=== PATIENT | male | born 1975 | race African-American/Black ===

== ENCOUNTER 2017-09-27 23:24 | Inpatient (IN) | payer MEDICARE, MEDICAID ==
[2017-09-28] MEDS ORDERED: Lactated Ringer 1,000 ML IV ONE (01:13)
[2017-09-28] MEDS ORDERED: Morphine Sulfate 2 mg/mL 1mL Syr IVP STA (01:14)
[2017-09-28 01:19] LABS: % BASOPHILS 3.2 % (0.0-2.0); % LYMPHOCYTES 47.5 % (20.0-50.0); % MONOCYTES 8.3 % (2.0-10.0); BASOPHILE ABSOLUTE 0.2 Th/cumm (0-0.2); EOSINOPHILE ABSOLUTE 0.2 Th/cmm (0.1-0.4); HEMATOCRIT 46.3 % (41.0-60); HEMOGLOBIN 15.3 gm/dL (12-16); LYMPHOCYTE ABSOLUTE 3.8 Th/cmm (1.5-3.0); MEAN CORPUSCULAR HEMOGLOBIN 29.3 pg (26.0-30.0); MEAN CORPUSCULAR HGB CONC 32.9 pg (28.0-36.0); MEAN PLATELET VOLUME 8.1 fl; MONOCYTE ABSOLUTE 0.6 Th/cmm (0.3-1.0); PLATELET COUNT 280 Th/cmm (150-400); RED BLOOD COUNT 5.21 Mil/cmm (4.30-5.70); RED CELL DISTRIBUTION WIDTH 14.7 % (11.5-20.0); WHITE BLOOD COUNT 7.8 Th/cmm (4.8-10.8)
[2017-09-28] MEDS ORDERED: Morphine Sulfate 2 mg/mL 1mL Syr ONE (01:24)
[2017-09-28 01:31] LABS: ALB/GLOB RATIO 1.2 (1.0-1.8); ALBUMIN 4.1 gm/dL (4.2-5.5); ALKALINE PHOSPHATASE 59 U/L (34-104); ANION GAP 11.4 (7.0-16.0); BILIRUBIN,TOTAL 0.4 mg/dL (0.3-1.0); BUN - UREA NITROGEN 16 mg/dL (7-25); CALCIUM SERUM 9.9 mg/dL (8.6-10.3); CARBON DIOXIDE 25.3 mEq/L (21.0-31.0); CHLORIDE 103 mEq/L (98-107); CREATININE - SERUM 0.9 mg/dL (0.7-1.3); GFR AFRICAN-AMERICAN > 60.0 ml/min (>90); GFR NON AFRICAN-AMERICAN > 60.0 ml/min; GLUCOSE 76 mg/dL (70-105); MAGNESIUM 1.9 mg/dL (1.9-2.7); PHOSPHOROUS 3.1 mg/dL (2.5-5.0); POTASSIUM SERUM 3.7 mEq/L (3.5-5.1); SGOT 11 U/L (13-39); SGPT/ALT 7 U/L (7-52); SODIUM SERUM 136 mEq/L (136-145); TOTAL PROTEIN,SERUM 7.6 gm/dL (6.0-8.3)
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
[2017-09-28] MEDS ORDERED: Morphine Sulfate 2 mg/mL 1mL Syr IVP PRN (04:11)
[2017-09-28 06:38] VITALS: BP 118/81
[2017-09-28] MEDS ORDERED: VTE Chemical Prophylaxis Screen/Admission MC PRN (08:04)
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
--- NOTE | 2017-09-28 09:04 | Diagnostic Imaging Report ---
Portable chest x-ray History: Cough Allowing for portable technique the heart size is normal. No focal pulmonary parenchymal processes. No hilar or mediastinal abnormalities. Impression: No acute abnormalities.
[2017-09-28 09:06] LABS: AMYLASE SERUM 96 U/L (29-103); LIPASE 21 U/L (11-82)
[2017-09-28] MEDS ORDERED: Magnesium Hydroxide (MOM) 30 mL UDC PO PRN (10:51)
[2017-09-28] MEDS: Lactated Ringer 1,000 ML IV SCH ×2 (11:18→21:06)
[2017-09-28] MEDS: Morphine Sulfate 2 mg/mL 1mL Syr IVP PRN ×2 (11:23→16:19)
[2017-09-28] MEDS ORDERED: Non-Formulary Item 1 EA (Amino Acids/Protein Hydrolys [Pro-Stat Sugar Free Liquid] 30 ML) PO SCH (17:00)
[2017-09-28 17:02] LABS: URINE BILIRUBIN NEGATIVE (NEGATIVE); URINE BLOOD NEGATIVE (NEGATIVE); URINE GLUCOSE (UA) NEGATIVE (NEGATIVE); URINE KETONE NEGATIVE (NEGATIVE); URINE LEUKOCYTE ESTERASE NEGATIVE (NEGATIVE); URINE NITRATE NEGATIVE (NEGATIVE); URINE PROTEIN NEGATIVE (NEGATIVE); URINE SOURCE CATH; URINE UROBILINOGEN 0.2 E.U./dL (0.2 - 1.0)
[2017-09-28 17:03] LABS: URINE CLARITY CLEAR (CLEAR); URINE COLOR YELLOW; URINE MICROSCOPIC INDICATED? YES
[2017-09-28 17:05] LABS: URINE BACTERIA 1+ /hpf (NONE SEEN); URINE EPITHELIAL CELLS MODERATE /lpf (FEW); URINE RBC 0-2 /hpf (0-5)
[2017-09-28 17:10] LABS: AMPHETAMINE URINE NEGATIVE (NEGATIVE); BARBITURATES URINE NEGATIVE (NEGATIVE); BENZODIAZEPINES QUAL URINE NEGATIVE (NEGATIVE); CANNABINOID THC NEGATIVE (NEGATIVE); COCAINE METABOLITE QUAL URINE NEGATIVE (NEGATIVE); METHADONE URINE NEGATIVE (NEGATIVE); METHAMPHETAMINES QUAL URINE NEGATIVE (NEGATIVE); OPIATES (MORPHINE) QUAL. URINE POSITIVE (NEGATIVE); PHENCYCLIDINE (PCP) URINE NEGATIVE (NEGATIVE); TRICYCLICS (TCA) QUAL. URINE NEGATIVE (NEGATIVE)
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
[2017-09-29] MEDS: Lactated Ringer 1,000 ML IV SCH ×3 (05:37→23:29)
[2017-09-29] MEDS: Morphine Sulfate 2 mg/mL 1mL Syr IVP PRN ×2 (10:00→16:47)
[2017-09-29] MEDS: Aspirin 81mg Chewable Tab PO SCH (10:08)
[2017-09-29] MEDS: Multivitamin w/ Minerals Tab PO SCH (10:09)
[2017-09-29] MEDS: POLYETHYLENE GLYCOL 3350 17 GM PACK PO SCH (10:09)
--- NOTE | 2017-09-29 17:13 | Consultation ---
DATE OF CONSULTATION: 09/29/2017 REQUESTING PHYSICIAN: Dr. Sewell. REASON FOR CONSULTATION: Abdominal pain. Thank you for asking us to see this patient in consultation. HISTORY OF PRESENT ILLNESS: This is a 41-year-old cachectic -Finnish male who was admitted to the [facility] due to acute abdominal pain, worsening confusion and severe weakness. The patient had a CT of the abdomen and pelvis performed, which showed no definite abnormality. The patient currently is not able to provide much history, seems to be understanding commands and responds with yes or no answers, however, is not willing to discuss any of this history with me at the current time. He denies any current abdominal pain, seems to be rather upset. The remainder of the history is obtained from chart review. He has a history of seizure disorder, paraplegia, cardiomegaly, bipolar disorder and decubitus ulcer in the past. He is unable to walk. Current CAT scan has been reviewed with no acute abnormalities. He has normal liver function test as well. PAST MEDICAL HISTORY: As in HPI. All others are negative. PAST SURGICAL HISTORY: Status post right nephrectomy. MEDICATIONS: Have been reviewed. ALLERGIES: None known. FAMILY HISTORY: Noncontributory for GI disease. SOCIAL HISTORY: Cannot be obtained as the patient does not really answer questions appropriately. REVIEW OF SYSTEMS: Unable to be obtained for same reason above. PHYSICAL EXAMINATION: VITAL SIGNS: Reviewed. GENERAL: Well-developed, cachectic male in no acute distress. HEENT: Normocephalic, atraumatic. PERRL positive. LUNGS: Clear bilaterally. No wheezes, rales or rhonchi. ABDOMEN: Soft, nontender. Bowel sounds were positive. EXTREMITIES: Show no clubbing, cyanosis or edema. NEUROLOGIC: Decreased power in the lower extremities. LABORATORY DATA: Normal CBC. Chemistry panel was unremarkable. Normal LFTs. Toxicology was only positive for opiates. IMAGING: Reviewed. ASSESSMENT AND PLAN: This is a 41-year-old -Finnish cachectic male who presents with acute abdominal pain with no acute findings on CT of the abdomen and pelvis. 1. Intractable abdominal pain. 2. Cachexia and protein calorie malnutrition. 3. Acute toxic metabolic encephalopathy. 4. Functional paraplegia. PLAN: 1. I would recommend obtaining a right upper quadrant ultrasound in this patient to assess for any gallbladder etiology. 2. Continue with supportive care. Monitor for any change in his baseline mental status as well. 3. Other workup per primary, consider immune including HIV and assessing if he needs any further neurological workup. We will continue to follow alongside with you. Thank you for this consultation. [facility]# [id number]
[2017-09-29] MEDS: Hydrocodone/APAP 5mg/325mg Tab PO PRN (18:10)
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
[2017-09-30] MEDS: Morphine Sulfate 2 mg/mL 1mL Syr IVP PRN (00:35)
[2017-09-30] MEDS: Hydrocodone/APAP 5mg/325mg Tab PO PRN (05:29)
[2017-09-30] MEDS: Lactated Ringer 1,000 ML IV SCH ×2 (07:42→18:20)
--- NOTE | 2017-09-30 08:36 | Diagnostic Imaging Report ---
Ultrasound abdomen HISTORY: Abdominal pain, history of right nephrectomy COMPARISON: CT abdomen and pelvis on 09/28/2017 Technique: Sonography of the abdomen was performed in multiple planes. FINDINGS: Exam is markedly limited due to body habitus and bowel gas and patient being uncooperative. The visualized portion of the pancreas are unremarkable. The tail of pancreas is not well-visualized. The visualized portions of the abdominal aorta within normal limits in size. The liver demonstrates normal echogenicity and measures 15.7 cm. The liver margins are not well-defined however no obvious focal lesions. The gallbladder was not visualized. The common bile duct measures 3 mm. The patient is status post right nephrectomy. The left kidney measures 10.2 x 6.3 cm. The left renal margin normal visualized limiting assessment for focal lesions. No hydronephrosis. The spleen measures 9.6 cm. IMPRESSION: Limited exam due to bowel gas and body habitus and as patient was uncooperative. Nonvisualization of the right kidney compatible with history of right nephrectomy No evidence of hydronephrosis of the left kidney. The gallbladder was not visualized. This may be due to gallbladder contraction or previous cholecystectomy procedure. Please correlate with clinical history.
[2017-09-30] MEDS: POLYETHYLENE GLYCOL 3350 17 GM PACK PO SCH (09:00)
[2017-09-30] MEDS: Multivitamin w/ Minerals Tab PO SCH (09:12)
[2017-09-30] MEDS: Aspirin 81mg Chewable Tab PO SCH (09:12)
--- NOTE | 2017-09-30 12:42 | Operative Report ---
GI Operative Report - Gastroenterology Procedure:: Colonoscopy with biopsies Colonoscopy with polypectomy Indication for procedure:: Partial SBO Concern for Crohns disease Procedure consent:: Obtained from patient Anesthesia:: Dr Dorys Rios Preoperative diagnosis:: 1. Abdominal Pain 2. Perirectal abscesses Postoperative diagnosis:: 1. Normal colonoscopy and ileoscopy 2. Small colon polyp in rectum, likely hyperplastic removed with cold biopsy forceps 3. Random colon biopsies obtained but endoscopically appeared normal Description of Procedure:: Consent: Informed consent was obtained from the patient after explaining the risks, benefits, and alternatives to procedure Sedation: Per anesthesia Colonoscopy: a well lubricated CFQ 180 colonoscope was inserted into the rectum and advanced under direct visualization to the cecum. The cecum was identified by the ileocecal valve and appendiceal orifice and TI opening. THe terminal ileum was visualized about 20cm deep. There was no evidence of ulceration or inflammation and looked entirely normal, thus no biopsies obtained. THe scope brought back into the right colon and carefully withdrawn. Random colon biopsies obtained. Ascending, transverse, descending, sigmoid colon appeared normal. Small hyperplasic 3mm polyp in rectum removed with cold biopsy forceps. Normal rectum in retroflexion and no evidence of fistulous holes seen in colon. Pt tolerated procedure well Recomendations: 1. MRI of the pelvis to better visualize perirectal abscesses and ensure no fistulas 2. Surgical management vs medical management for perirectal abscesses 3. Will follow 4. Lower suspicion this is IBD at all, nothing seen on endoscopy to suggest this.
--- NOTE | 2017-09-30 13:18 | GI Progress Note ---
Subjective - Review of Systems Service Date: 09/30/17 Events since last encounter: nO EVENTS Objective - Results Result Diagrams: 09/28/17 01:10 09/28/17 01:10 Recent Labs: Laboratory Last Values WBC 7.8 Th/cmm (4.8-10.8) 09/28/17 01:10 RBC 5.21 Mil/cmm (4.30-5.70) 09/28/17 01:10 Hgb 15.3 gm/dL (12-16) 09/28/17 01:10 Hct 46.3 % (41.0-60) 09/28/17 01:10 MCV 89.0 fl (80-99) 09/28/17 01:10 MCH 29.3 pg (26.0-30.0) 09/28/17 01:10 MCHC Differential 32.9 pg (28.0-36.0) 09/28/17 01:10 RDW 14.7 % (11.5-20.0) 09/28/17 01:10 Plt Count 280 Th/cmm (150-400) 09/28/17 01:10 MPV 8.1 fl 09/28/17 01:10 Neutrophils % 38.0 % (40.0-80.0) L 09/28/17 01:10 Lymphocytes % 47.5 % (20.0-50.0) 09/28/17 01:10 Monocytes % 8.3 % (2.0-10.0) 09/28/17 01:10 Eosinophils % 3.0 % (0.0-5.0) 09/28/17 01:10 Basophils % 3.2 % (0.0-2.0) H 09/28/17 01:10 Sodium 136 mEq/L (136-145) 09/28/17 01:10 Potassium 3.7 mEq/L (3.5-5.1) 09/28/17 01:10 Chloride 103 mEq/L (98-107) 09/28/17 01:10 Carbon Dioxide 25.3 mEq/L (21.0-31.0) 09/28/17 01:10 Anion Gap 11.4 (7.0-16.0) 09/28/17 01:10 BUN 16 mg/dL (7-25) 09/28/17 01:10 Creatinine 0.9 mg/dL (0.7-1.3) 09/28/17 01:10 Est GFR ( Amer) > 60.0 ml/min (>90) 09/28/17 01:10 Est GFR (Non-Af Amer) > 60.0 ml/min 09/28/17 01:10 BUN/Creatinine Ratio 17.8 09/28/17 01:10 Glucose 76 mg/dL (70-105) 09/28/17 01:10 POC Glucose 81 MG/DL (70 - 105) 09/28/17 05:59 Whole Bld Lactic Acid 0.69 mmol/L (0.60-1.99) 09/28/17 01:10 Calcium 9.9 mg/dL (8.6-10.3) 09/28/17 01:10 Phosphorus 3.1 mg/dL (2.5-5.0) 09/28/17 01:10 Magnesium 1.9 mg/dL (1.9-2.7) 09/28/17 01:10 Total Bilirubin 0.4 mg/dL (0.3-1.0) 09/28/17 01:10 AST 11 U/L (13-39) L 09/28/17 01:10 ALT 7 U/L (7-52) 09/28/17 01:10 Alkaline Phosphatase 59 U/L (34-104) 09/28/17 01:10 Total Protein 7.6 gm/dL (6.0-8.3) 09/28/17 01:10 Albumin 4.1 gm/dL (4.2-5.5) L 09/28/17 01:10 Globulin 3.5 gm/dL 09/28/17 01:10 Albumin/Globulin Ratio 1.2 (1.0-1.8) 09/28/17 01:10 Amylase 96 U/L (29-103) 09/28/17 01:10 Lipase 21 U/L (11-82) 09/28/17 01:10 Urine Source CATH 09/28/17 16:35 Urine Color YELLOW 09/28/17 16:35 Urine Clarity CLEAR (CLEAR) 09/28/17 16:35 Urine pH 6.0 (4.6 - 8.0) 09/28/17 16:35 Ur Specific [place] 1.025 (1.005-1.030) 09/28/17 16:35 Urine Protein NEGATIVE mg/dL (NEGATIVE) 09/28/17 16:35 Urine Glucose (UA) NEGATIVE mg/dL (NEGATIVE) 09/28/17 16:35 Urine Ketones NEGATIVE mg/dL (NEGATIVE) 09/28/17 16:35 Urine Blood NEGATIVE (NEGATIVE) 09/28/17 16:35 Urine Nitrate NEGATIVE (NEGATIVE) 09/28/17 16:35 Urine Bilirubin NEGATIVE (NEGATIVE) 09/28/17 16:35 Urine Urobilinogen 0.2 E.U./dL (0.2 - 1.0) 09/28/17 16:35 Ur Leukocyte Esterase NEGATIVE (NEGATIVE) 09/28/17 16:35 Urine RBC 0-2 /hpf (0-5) H 09/28/17 16:35 Urine WBC 2-5 /hpf (0-5) 09/28/17 16:35 Ur Epithelial Cells MODERATE /lpf (FEW) 09/28/17 16:35 Urine Bacteria 1+ /hpf (NONE SEEN) H 09/28/17 16:35 Urine Opiates Screen POSITIVE (NEGATIVE) H 09/28/17 16:35 Urine Methadone Screen NEGATIVE (NEGATIVE) 09/28/17 16:35 Ur Barbiturates Screen NEGATIVE (NEGATIVE) 09/28/17 16:35 Ur Tricyclics Screen NEGATIVE (NEGATIVE) 09/28/17 16:35 Ur Phencyclidine Scrn NEGATIVE (NEGATIVE) 09/28/17 16:35 Amphetamines Screen NEGATIVE (NEGATIVE) 09/28/17 16:35 U Methamphetamines Scrn NEGATIVE (NEGATIVE) 09/28/17 16:35 U Benzodiazepines Scrn NEGATIVE (NEGATIVE) 09/28/17 16:35 U Cocaine Metab Screen NEGATIVE (NEGATIVE) 09/28/17 16:35 U Cannabinoids Screen NEGATIVE (NEGATIVE) 09/28/17 16:35 - Physical Exam Vitals and I&O: Vital Signs Temp 98.5 F 09/30/17 11:34 Pulse 52 09/30/17 11:34 Resp 17 09/30/17 12:00 BP 139/94 09/30/17 11:34 Pulse Ox 99 09/30/17 11:34 Intake & Output 09/29/17 09/30/17 09/30/17 18:59 06:59 18:59 Intake Total 1750 1250 1000 Balance 1750 1250 1000 Weight (lbs) 48.534 kg 50.349 kg Intake: Intake, IV Amount 1000 1000 1000 Lactated Ringer 1,000 ml 1000 1000 1000 @ 125 mls/hr IV .Q8H [facility] Rx#:[id number] Oral 750 250 Other: # Voids 1 3 # Bowel Movements 1 0 Weight Source Bedscale Bedscale Active Medications: Current Medications Acetaminophen (Tylenol) 650 mg PO Q6H PRN PRN Reason: Pain or Fever >101 Stop: 11/27/17 10:50 Acetaminophen/Hydrocodone Bitart ([place] 5mg/325mg) 1 tab PO Q6H PRN PRN Reason: Pain (Severe) Stop: 11/27/17 10:50 Last Admin: 09/30/17 05:29 Dose: 1 tab Ascorbic Acid (Vitamin C) 500 mg PO DAILY [facility] Stop: 11/28/17 08:59 Last Admin: 09/30/17 09:12 Dose: 500 mg Aspirin (Aspirin Chewable) 81 mg PO DAILY [facility] Stop: 11/28/17 08:59 Last Admin: 09/30/17 09:12 Dose: 81 mg Baclofen (Lioresal) 5 mg PO Q8HR [facility] Stop: 11/27/17 12:59 Last Admin: 09/30/17 05:29 Dose: 5 mg Bisacodyl (Dulcolax 10 Mg Supp) 10 mg RC DAILY PRN PRN Reason: Constipation Stop: 11/27/17 10:50 Carvedilol (Coreg) 25 mg PO BID [facility] Stop: 11/27/17 16:59 Last Admin: 09/30/17 09:12 Dose: 25 mg Chlorthalidone (Hygroton) 25 mg PO DAILY [facility] Stop: 11/28/17 08:59 Last Admin: 09/29/17 10:08 Dose: Not Given Gabapentin (Neurontin) 200 mg PO Q8HR [facility] Stop: 11/27/17 12:59 Last Admin: 09/30/17 05:28 Dose: 200 mg Heparin Sodium (Porcine) (Heparin) 5,000 units SUBQ Q12HR [facility] Stop: 11/27/17 08:59 Last Admin: 09/30/17 09:14 Dose: 5,000 units Lactated Ringer's (Lactated Ringer) 1,000 mls @ 125 mls/hr IV .Q8H [facility] Stop: 11/27/17 07:44 Last Admin: 09/30/17 07:42 Dose: 125 mls/hr Ibuprofen (Motrin) 400 mg PO Q6H PRN PRN Reason: Pain (Mild) Stop: 11/27/17 10:50 Magnesium Hydroxide (Milk Of Magnesia) 30 ml PO DAILY PRN PRN Reason: Constipation Stop: 11/27/17 10:50 Miscellaneous (Vte Chemical Prophylaxis Screen/ Admission) 1 ea [facility] PRN PRN PRN Reason: PROTOCOL Stop: 11/27/17 08:03 Morphine Sulfate (Morphine) 2 mg IVP Q4HR PRN PRN Reason: Abdominal Pain Stop: 11/27/17 04:10 Last Admin: 09/30/17 00:35 Dose: 2 mg Polyethylene Glycol (Miralax) 17 gm PO DAILY [facility] Stop: 11/28/17 08:59 Last Admin: 09/30/17 09:00 Dose: Not Given Senna (Senna) 8.6 mg PO HS PRN PRN Reason: Constipation Stop: 11/27/17 10:50 Sertraline HCl (Zoloft) 50 mg PO DAILY [facility]; Protocol Stop: 11/28/17 08:59 Last Admin: 09/30/17 09:12 Dose: 50 mg Tramadol HCl (Ultram) 50 mg PO Q6H PRN PRN Reason: Pain (Moderate) Stop: 11/27/17 10:55 Zinc Sulfate (Zinc Sulfate) 220 mg PO DAILY [facility] Stop: 11/28/17 08:59 Last Admin: 09/30/17 09:12 Dose: 220 mg General: Alert, Oriented x3 HEENT: Atraumatic, EOMI Neck: Supple Cardiovascular: Regular rate, Normal S1, Normal S2 Lungs: Clear to auscultation Abdomen: Bowel sounds, Soft, Distended Assessment/Plan - Assessment Assessment: 1. Abdominal Pain -recommend advance diet -THus far negative workup -Patient does not desire any further workup, wants to eat -Very uncooperative, spent 15 minutes in front of patient and he refused to talk to me, in front of nurses witness -GI will sign off, please call or page if any questions or concerns
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
[2017-10-01] MEDS: Morphine Sulfate 2 mg/mL 1mL Syr IVP PRN (04:33)
[2017-10-01] MEDS ORDERED: Piperacillin Sodium/Tazobact 3.375 gm Vial IV ONE (05:02)
[2017-10-01] MEDS: Aspirin 81mg Chewable Tab PO SCH (09:58)
[2017-10-01] MEDS: POLYETHYLENE GLYCOL 3350 17 GM PACK PO SCH ×2 (09:59→10:07)
[2017-10-01] MEDS: Multivitamin w/ Minerals Tab PO SCH (10:03)
[2017-10-01] MEDS: Hydrocodone/APAP 5mg/325mg Tab PO PRN (11:41)
[2017-10-01] MEDS: Lactated Ringer 1,000 ML IV SCH (17:24)
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
[2017-10-02] MEDS: Lactated Ringer 1,000 ML IV SCH (06:19)
[2017-10-02] MEDS: Multivitamin w/ Minerals Tab PO SCH (09:34)
[2017-10-02] MEDS: POLYETHYLENE GLYCOL 3350 17 GM PACK PO SCH ×2 (09:36→09:54)
[2017-10-02] MEDS: Aspirin 81mg Chewable Tab PO SCH (09:44)
[2017-10-02] MEDS: Morphine Sulfate 2 mg/mL 1mL Syr IVP PRN (15:48)
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
[2017-10-03] MEDS: Hydrocodone/APAP 5mg/325mg Tab PO PRN (09:35)
--- NOTE | 2017-10-04 00:04 | Discharge Summary ---
DATE OF DISCHARGE: 10/03/2017 FINAL DIAGNOSES: 1. Abdominal pain, improved. 2. Altered level of consciousness, improved. 3. Questionable perianal abscess. 4. Noncompliance and education provided. 5. Dehydration, resolved. 6. Paraplegia. 7. Incontinence. 8. Chronic pain syndrome. HOSPITAL COURSE: The patient is a 41-year-old -[place] Citizen male admitted due to right-sided abdominal pain and altered level of consciousness, etc. Abdomen and pelvis CT scan revealed no definitive abdominal abnormalities. GI consultation was requested. The patient refused some of the workup. Anyway, the patient's abdominal pain improved. He was accepted back to [facility]. DISCHARGE CONDITION: Stable. DISPOSITION: [facility]. DISCHARGE MEDICATION: Continue medication from here. DIET: Cardiac soft diet. ACTIVITY: Bed rest with physical therapy. FOLLOWUP: One week. JOB# [id number]
== END 2017-10-03 11:18 | DRG 640 ==
LOC: ER 23:24 → MSI 09-28 03:50 → TELE 09-28 05:18 → MSI 10-01 21:45
PROVIDERS: ADMIT Internal Medicine; ATTEND Internal Medicine
DX: E86.0 Dehydration (principal); G92 Toxic encephalopathy; Z68.1 Body mass index [BMI] 19.9 or less, adult; E46 Unspecified protein-calorie malnutrition; K61.0 Anal abscess; G40.909 Epilepsy, unspecified, not intractable, without status epilepticus; G89.4 Chronic pain syndrome; I11.9 Hypertensive heart disease without heart failure; L89.159 Pressure ulcer of sacral region, unspecified stage; F31.9 Bipolar disorder, unspecified; M62.838 Other muscle spasm; L89.899 Pressure ulcer of other site, unspecified stage; R32 Unspecified urinary incontinence; F44.4 Conversion disorder with motor symptom or deficit; R10.9 Unspecified abdominal pain; Z90.5 Acquired absence of kidney; Z87.440 Personal history of urinary (tract) infections; Z91.19 Patient's noncompliance with other medical treatment and regimen
CPT/HCPCS: 36415-UA; 71045-TC; 76700-TC; 80053-TC; 80307; 81001-TC; 82150-TC; 82948-90; 83605; 83690-TC; 83735-TC; 84100-TC; 85025-TC; 87086-90; 93005; 96374; J1644; J2270; J2543; J7121; Z7610